=== PATIENT | male | born 1935 | race Caucasian/White ===

== ENCOUNTER → 2017-02-26 | Outpatient (CLI) | payer MEDICARE, BC ==
[~2017-02-26] MED LIST: CALC-131 PO; CHOL1TAB42 PO; CO Q60CA PO; DOXA1 PO; DOXA1TAB34 PO; ERYT.5%O RIGHT EYE; FISH500C PO; VALT1TAB PO; VIAG50TA PO; ZOFR4TAB3 SL; [UNRECOGNIZED DRUG - OTHER] PO
[2017-02-26 14:09] LABS: HEMATOCRIT 39.4 % (39.0-51.0); MEAN CELL VOLUME 90.2 FL (80.0-100.0); MEAN CORPUSCULAR HEMOGLOBIN 31.9 PG (27.0-34.0); MEAN CORPUSCULAR HGB CONC 35.4 % (32.0-36.0); PLATELET COUNT 129 TH/MM3 (150-450); RED BLOOD COUNT 4.37 MIL/MM3 (4.50-5.90); RED CELL DISTRIBUTION WIDTH 13.6 % (11.6-17.2); WHITE BLOOD COUNT 3.8 TH/MM3 (4.0-11.0)
[2017-02-26 14:15] LABS: HEMO FLAGS AUTO DIFF
[2017-02-26 15:32] LABS: BANDS 12 % (0-6); BASOPHILS 1 % (0-2); NEUTROPHIL # MANUAL DIFF 2.5 TH/MM3 (1.8-7.7); PLATELET ESTIMATE SMEAR LOW (NORMAL); PLATELET MORPHOLOGY NORMAL (NORMAL); POLYS (SEG NEUTROPHILS) 55 % (16-70); SCAN/DIFF FINAL DIFF MANUAL; WBC DIFF SAMPLE 100
== END ==
LOC: CLAB 13:50
PROVIDERS: ATTEND Family Medicine
DX: B01.9 Varicella without complication (principal)
CPT/HCPCS: 36415; 85007; 85027; 86787

== ENCOUNTER 2017-02-27 16:17 | Observation (INO) | payer MEDICARE, BC ==
[~2017-02-27] VITALS: Ht 170.2 cm; Wt 75.0 kg
[~2017-02-27 16:17] MED LIST changes: -CALC-131 PO; -CHOL1TAB42 PO; -CO Q60CA PO; -DOXA1TAB34 PO; -FISH500C PO; -VALT1TAB PO; -ZOFR4TAB3 SL; -[UNRECOGNIZED DRUG - OTHER] PO
[2017-02-27] MEDS ORDERED: SODIUM CHLOR 0.9% 1000 ML INJ 1,000 ML IV ONE ×2 (17:15)
[2017-02-27] MEDS ORDERED: ONDANSETRON HCL 4 MG/2 ML VIAL IV ONE (17:15)
[2017-02-27 17:46] VITALS: BP 120/60; PULSE 92; RESP 18; TEMP 97.9; O2SAT 98
[2017-02-27 17:46] LABS: AUTOMATED NEUTROPHIL # 2.9 TH/MM3 (1.8-7.7); BASOPHIL % 0.4 % (0.0-2.0); HEMATOCRIT 35.8 % (39.0-51.0); LYMPH % 15.6 % (9.0-44.0); LYMPHOCYTE # 0.6 TH/MM3 (1.0-4.8); MEAN CELL VOLUME 89.4 FL (80.0-100.0); MEAN CORPUSCULAR HEMOGLOBIN 31.1 PG (27.0-34.0); MEAN CORPUSCULAR HGB CONC 34.7 % (32.0-36.0); MONO % 13.3 % (0.0-8.0); NEUT % 70.7 % (16.0-70.0); RED CELL DISTRIBUTION WIDTH 13.3 % (11.6-17.2); WHITE BLOOD COUNT 4.1 TH/MM3 (4.0-11.0)
[2017-02-27 17:49] LABS: BLOOD, URINE SMALL (NEG); COMMENT (UR) CULT NOT INDICATED; CULTURE IF INDICATED CULT NOT INDICATED; GLUCOSE,URINE NEG (NEG); HYALINE CAST, URINE 1 /lpf (RARE); KETONE, URINE 10 mg/dL (NEG); MUCUS URINE FEW /lpf (OCC); NITRITE,URINE NEG (NEG); PH, URINE 6.5 (5.0-8.5); URINE COLOR YELLOW (YELLW/STRAW)
[2017-02-27 17:50] LABS: HEMO FLAGS AUTO DIFF
--- NOTE | 2017-02-27 17:55 | PD ---
HPI Chief Complaint: Fall Time Seen by Provider: 17:03 Travel History International Travel<30 days: No Contact w/Intl Traveler<30days: No Traveled to known affect area: No History of Present Illness HPI Send 81-year-old man who presents to the emergency department complaining of dizziness lightheadedness nausea and falls. He was recently diagnosed with chickenpox after his developed zoster. Skin sick for a couple days now. He's been taking Valtrex. He started getting dizzy and nauseous 2 days ago. Is put on Zofran by his primary physician. He states he's continued to have nausea, feeling weak, unable to eat or drink, and today got weak and fell. He otherwise has been healthy and strong. He really doesn't have any other significant medical problems. EMS reports patient was hypotensive initially blood pressure 95/56. Improved with IV fluids. History Past Medical History Narrative Medical Hypertension Tetanus Vaccination: < 5 Years Influenza Vaccination: Yes Social History Alcohol Use: No Tobacco Use: No Allergies-Medications (Allergen,Severity, Reaction): Coded Allergies: No Known Allergies (Verified , 11/17/15) Reported Meds & Prescriptions Reported Meds & Active Scripts Active Reported Vitamin D-3 (Cholecalciferol) 2,000 Unit Tab 2,000 Units PO DAILY Fish Oil ([place]-3 Fatty Acids) 500 Mg Cap 500 Mg PO DAILY Co Q 10 (Coenzyme Q10 (Ubidecarenone)) 60 Mg Cap 60 Mg PO DAILY [Eye Vision Guard] 1 Cap PO DAILY Calcium & Magnesium (Calcium-Magnesium) 750-465 Mg Tab 1 Tab PO DAILY Zofran Odt (Ondansetron Odt) 4 Mg Tab 4 Mg SL Q8HR PRN Valtrex (Valacyclovir HCl) 1 Gm Tab 1,000 Mg PO TID Doxazosin (Doxazosin Mesylate) 4 Mg Tab 4 Mg PO HS Review of Systems Except as stated in HPI: all other systems reviewed are Neg Physical Exam Narrative GENERAL: 81-year-old man, somewhat ill-appearing, no acute distress. SKIN: Focused skin assessment warm/dry. Widely disseminated papular and vesicular lesions with scabbing in different stages of development. HEENT: Dry mucous membranes. NECK: Trachea midline. No JVD. CARDIOVASCULAR: Regular rate and rhythm. No murmur appreciated. RESPIRATORY: No accessory muscle use. Clear to auscultation. Breath sounds equal bilaterally. GASTROINTESTINAL: Abdomen soft, non-tender, nondistended. Hepatic and splenic margins not palpable. MUSCULOSKELETAL: No obvious deformities. No edema. NEUROLOGICAL: Awake and alert. No obvious cranial nerve deficits. Motor grossly within normal limits. Normal speech. PSYCHIATRIC: Appropriate mood and affect; insight and judgment normal. Data Data Last Documented VS Vital Signs Date Time Temp Pulse Resp B/P Pulse Ox O2 Delivery O2 Flow Rate FiO2 02/27/17 18:51 86 16 123/62 98 Room Air 02/27/17 17:46 97.9 Orders Complete Blood Count With Diff (02/27/17 17:13) Comprehensive Metabolic Panel (02/27/17 17:13) Act Partial Throm Time (Ptt) (02/27/17 17:13) Prothrombin Time / Inr (Pt) (02/27/17 17:13) Urinalysis - C+S If Indicated (02/27/17 17:13) Iv Access Insert/Monitor (02/27/17 17:13) Electrocardiogram (02/27/17 ) Lactic Acid Sepsis Protocol (02/27/17 17:13) Sodium Chlor 0.9% 1000 Ml Inj (Ns 1000 M (02/27/17 17:15) Sodium Chlor 0.9% 1000 Ml Inj (Ns 1000 M (02/27/17 17:15) Ondansetron Inj (Zofran Inj) (02/27/17 17:15) Isolation (02/27/17 17:55) Labs Laboratory Tests Test 02/27/17 17:30 White Blood Count 4.1 TH/MM3 Red Blood Count 4.00 MIL/MM3 Hemoglobin 12.4 GM/DL Hematocrit 35.8 % Mean Corpuscular Volume 89.4 FL Mean Corpuscular Hemoglobin 31.1 PG Mean Corpuscular Hemoglobin 34.7 % Concent Red Cell Distribution Width 13.3 % Platelet Count 94 TH/MM3 Mean Platelet Volume 9.2 FL Neutrophils (%) (Auto) 70.7 % Lymphocytes (%) (Auto) 15.6 % Monocytes (%) (Auto) 13.3 % Eosinophils (%) (Auto) 0.0 % Basophils (%) (Auto) 0.4 % Neutrophils # (Auto) 2.9 TH/MM3 Lymphocytes # (Auto) 0.6 TH/MM3 Monocytes # (Auto) 0.5 TH/MM3 Eosinophils # (Auto) 0.0 TH/MM3 Basophils # (Auto) 0.0 TH/MM3 CBC Comment AUTO DIFF Differential Comment AUTO DIFF CONFIRMED Prothrombin Time 12.7 SEC Prothromb Time International 1.1 RATIO Ratio Activated Partial 32.8 SEC Thromboplast Time Urine Color YELLOW Urine Turbidity CLEAR Urine pH 6.5 Urine Specific [place] 1.010 Urine Protein TRACE mg/dL Urine Glucose (UA) NEG mg/dL Urine Ketones 10 mg/dL Urine Occult Blood SMALL Urine Nitrite NEG Urine Bilirubin NEG Urine Urobilinogen LESS THAN 2.0 MG/DL Urine Leukocyte Esterase NEG Urine RBC 3 /hpf Urine WBC 1 /hpf Urine Hyaline Casts 1 /lpf Urine Mucus FEW /lpf Microscopic Urinalysis Comment CULT NOT INDICATED Sodium Level 137 MEQ/L Potassium Level 3.8 MEQ/L Chloride Level 104 MEQ/L Carbon Dioxide Level 23.2 MEQ/L Anion Gap 10 MEQ/L Blood Urea Nitrogen 18 MG/DL Creatinine 1.25 MG/DL Estimat Glomerular Filtration 56 ML/MIN Rate Random Glucose 106 MG/DL Lactic Acid Level 1.3 mmol/L Calcium Level 7.3 MG/DL Protein Corrected Calcium 8.1 MG/DL Total Bilirubin 0.9 MG/DL Aspartate Amino Transf 58 U/L (AST/SGOT) Alanine Aminotransferase 50 U/L (ALT/SGPT) Alkaline Phosphatase 68 U/L Total Protein 5.7 GM/DL Albumin 3.1 GM/DL [facility] Medical Decision Making Medical Screen Exam Complete: Yes Emergency Medical Condition: Yes Interpretation(s) LABS: CBC remarkable for mild anemia. CMP unremarkable. Lactate 1.3. Coags unremarkable. UA unremarkable. Differential Diagnosis Dehydration, anemia, sepsis or infection, other Narrative Course Medical decision making INITIAL cause an 81-year-old man, presents to the emergency department with weakness, nausea, decreased by mouth intake, and fall in the setting of chickenpox infection. He looks ill. Appears dehydrated. Had hypotension but improved after IV fluids. We'll check labs, IV fluid rehydration, plan on admission. Diagnosis Primary Impression: Dehydration Additional Impressions: Weakness Chickenpox Admitting Information Admitting Physician Requests: Observation Cody Bahena MD Feb 27, 2017 17:55
[2017-02-27] MEDS ORDERED: CHOL1TAB42 PO (17:56)
[2017-02-27] MEDS ORDERED: ZOFR4TAB3 SL (17:56)
[2017-02-27] MEDS ORDERED: DOXA1TAB34 PO (17:56)
[2017-02-27] MEDS ORDERED: FISH500C PO (17:56)
[2017-02-27] MEDS ORDERED: [UNRECOGNIZED DRUG - OTHER] PO (17:56)
[2017-02-27] MEDS ORDERED: VALT1TAB PO (17:56)
[2017-02-27] MEDS ORDERED: CALC-131 PO (17:56)
[2017-02-27] MEDS ORDERED: CO Q60CA PO (17:56)
[2017-02-27 18:02] LABS: APTT (PATIENT) 32.8 SEC (24.3-30.1); INTERNATIONAL NORMALIZED RATIO 1.1 RATIO; PROTHROMBIN TIME - PATIENT 12.7 SEC (9.8-11.6)
[2017-02-27 18:17] LABS: BICARBONATE 23.2 MEQ/L (21.0-32.0); CALCIUM-PROTEIN CORRECTED 8.1 MG/DL (8.5-10.1); POTASSIUM 3.8 MEQ/L (3.5-5.1); TOTAL BILIRUBIN ADULT 0.9 MG/DL (0.2-1.0)
[2017-02-27 18:30] LABS: PLATELET COUNT 94 TH/MM3 (150-450); SCAN/DIFF AUTO DIFF CONFIRMED
[2017-02-27 18:51] VITALS: BP 123/62; PULSE 86; RESP 16; O2SAT 98
[2017-02-27] MEDS ORDERED: NALOXONE HCL 0.4 MG/ML AMP IV PRN (20:00)
[2017-02-27] MEDS ORDERED: SODIUM CHLORIDE 0.9% FLUSH 10 ML FLUSH IV FLUSH PRN (20:00)
[2017-02-27] MEDS ORDERED: ONDANSETRON HCL 4 MG/2 ML VIAL IV PUSH PRN (20:45)
[2017-02-27] MEDS: SODIUM CHLORIDE 0.9% FLUSH 10 ML FLUSH IV FLUSH SCH (21:00)
[2017-02-27] MEDS ORDERED: ACETAMINOPHEN 500 MG CPLT PO PRN (22:15)
--- NOTE | 2017-02-27 22:18 | HHI.HP ---
[facility] Bethany Garib[facility] MD Admission Diagnosis dehydration, chicken pox Diagnoses: Travel History International Travel<30 Days: No Contact w/Intl Traveler <30 Da: No Traveled to Known Affected Are: No History of Present Illness This is a pleasant 81-year-old gentleman with a past medical history which includes hypertension and BPH. Patient reports he was in his normal state of health until Sunday when he began to have nausea, loose stools, generalized malaise and subjective fevers. Patient's has recently had shingles and patient was diagnosed with chickenpox by his PCP yesterday. Patient does have generalized pustular rash consistent with chickenpox throughout his entire body. Patient's decided to bring him to the emergency department after he had a syncopal episode today where he fell on his right side on the tile bathroom floor. Patient does report loss of consciousness. Patient's was present reports he had lost consciousness for a few minutes which spontaneously returned. Patient and deny head trauma. EVAC was called and patient was found to be hypotensive 95/56. Patient reports he has not been eating and drinking much in the last few days due to his nausea. Patient only had one cup of soup all day. Patient denies shortness of breath chest pain vomiting or constipation. Review of Systems Except as stated in HPI: all other systems reviewed are Neg Past Family Social History Past Medical History Hypertension, BPH Past Surgical History Bilateral inguinal hernia repair, appendectomy, bilateral cataract surgery Reported Medications Vitamin D-3 (Cholecalciferol) 2,000 Unit Tab 2,000 Units PO DAILY Fish Oil ([place]-3 Fatty Acids) 500 Mg Cap 500 Mg PO DAILY Co Q 10 (Coenzyme Q10 (Ubidecarenone)) 60 Mg Cap 60 Mg PO DAILY [Eye Vision Guard] 1 Cap PO DAILY Calcium & Magnesium (Calcium-Magnesium) 750-465 Mg Tab 1 Tab PO DAILY Zofran Odt (Ondansetron Odt) 4 Mg Tab 4 Mg SL Q8HR PRN Valtrex (Valacyclovir HCl) 1 Gm Tab 1,000 Mg PO TID Doxazosin (Doxazosin Mesylate) 4 Mg Tab 4 Mg PO HS Allergies: Coded Allergies: No Known Allergies (Verified , 11/17/15) Active Ordered Medications Current Medications Medications (Trade) Dose Ordered Sig/Lidya Route Start Time Stop Time Status Last Admin (NS Flush) 2 ml UNSCH PRN IV FLUSH 02/27/17 20:00 (NS Flush) 2 ml BID IV FLUSH 02/27/17 21:00 02/27/17 21:00 (Narcan Inj) 0.4 mg UNSCH PRN IV 02/27/17 20:00 (Zofran Inj) 4 mg Q6HR PRN IV PUSH 02/27/17 20:45 Family History Mother in her 90s secondary to pneumonia Father in his 70s of unknown causes Social History Patient was at home with his Reports occasional EtOH use glass of wine approximately once a week Quit smoking in 1972 Denies illicit drug use Physical Exam Vital Signs Vital Signs Date Time Temp Pulse Resp B/P Pulse Ox O2 Delivery O2 Flow Rate FiO2 02/27/17 18:51 86 16 123/62 98 Room Air 02/27/17 17:49 98 Room Air 02/27/17 17:46 97.9 92 18 120/60 98 Physical Exam GENERAL: This is a well-nourished, well-developed patient, appears fatigued. SKIN: Skin tear right elbow/upper arm. Generalized pustular rash throughout body consistent with chickenpox. Skin appears dry with dry mucous membranes HEAD: Atraumatic. Normocephalic. No temporal or scalp tenderness. EYES: Extraocular motions intact. No scleral icterus. No injection or drainage. CARDIOVASCULAR: Regular rate and rhythm without murmurs, gallops, or rubs. RESPIRATORY: Clear to auscultation. Breath sounds equal bilaterally. No wheezes , rales, or rhonchi. GASTROINTESTINAL: Abdomen soft, non-tender, nondistended. No hepato-splenomegaly , or palpable masses. No guarding. MUSCULOSKELETAL: Extremities without clubbing, cyanosis, or edema. No joint tenderness, effusion, or edema noted. No calf tenderness. Negative Homans sign bilaterally. NEUROLOGICAL: Awake and alert. No focal deficits appreciated. Motor and sensory grossly within normal limits. 4 out of 5 muscle strength in all muscle groups. Normal speech. Laboratory Laboratory Tests Test 02/27/17 17:30 White Blood Count 4.1 Red Blood Count 4.00 Hemoglobin 12.4 Hematocrit 35.8 Mean Corpuscular Volume 89.4 Mean Corpuscular Hemoglobin 31.1 Mean Corpuscular Hemoglobin 34.7 Concent Red Cell Distribution Width 13.3 Platelet Count 94 Mean Platelet Volume 9.2 Neutrophils (%) (Auto) 70.7 Lymphocytes (%) (Auto) 15.6 Monocytes (%) (Auto) 13.3 Eosinophils (%) (Auto) 0.0 Basophils (%) (Auto) 0.4 Neutrophils # (Auto) 2.9 Lymphocytes # (Auto) 0.6 Monocytes # (Auto) 0.5 Eosinophils # (Auto) 0.0 Basophils # (Auto) 0.0 CBC Comment AUTO DIFF Differential Comment AUTO DIFF CONFIRMED Prothrombin Time 12.7 Prothromb Time International 1.1 Ratio Activated Partial 32.8 Thromboplast Time Urine Color YELLOW Urine Turbidity CLEAR Urine pH 6.5 Urine Specific [place] 1.010 Urine Protein TRACE Urine Glucose (UA) NEG Urine Ketones 10 Urine Occult Blood SMALL Urine Nitrite NEG Urine Bilirubin NEG Urine Urobilinogen LESS THAN 2.0 Urine Leukocyte Esterase NEG Urine RBC 3 Urine WBC 1 Urine Hyaline Casts 1 Urine Mucus FEW Microscopic Urinalysis Comment CULT NOT INDICATED Sodium Level 137 Potassium Level 3.8 Chloride Level 104 Carbon Dioxide Level 23.2 Anion Gap 10 Blood Urea Nitrogen 18 Creatinine 1.25 Estimat Glomerular Filtration 56 Rate Random Glucose 106 Lactic Acid Level 1.3 Calcium Level 7.3 Protein Corrected Calcium 8.1 Total Bilirubin 0.9 Aspartate Amino Transf 58 (AST/SGOT) Alanine Aminotransferase 50 (ALT/SGPT) Alkaline Phosphatase 68 Total Protein 5.7 Albumin 3.1 Result Diagram: 02/27/17 1730 02/27/17 1730 Assessment and Plan Problem List: (1) Chickenpox ICD Code: B01.9 Status: Acute (2) Syncope ICD Code: R55 Status: Acute (3) Dehydration ICD Code: E86.0 Status: Acute Assessment and Plan This is a pleasant 81-year-old gentleman with a past medical history which includes hypertension and BPH. Patient presents to the emergency department with chickenpox and syncopal episode 1 Chickenpox inpatient 81 years old IV fluids Supportive care Antibiotics as needed Tylenol for pain/fever as needed Syncopal episode likely secondary to dehydration Hypotensive episode also likely secondary to acute hydration IV fluids Check orthostatic hypotension Hypertension chronic Continue home medication with hold parameters DVT prophylaxis with SCDs Discussed with ER provider, nursing patient patient's at bedside and Allyn Pichardo Feb 27, 2017 22:18
[2017-02-28 04:07] VITALS: BP 94/51; PULSE 77; RESP 18; TEMP 98; O2SAT 97
[2017-02-28] MEDS ORDERED: SODIUM CHLOR 0.9% 1000 ML INJ 1,000 ML IV SCH (04:30)
--- NOTE | 2017-02-28 06:50 | EKG ---
Date Performed: 02/27/2017 Time Performed: 18:05:55 PTAGE: 81 years EKG: Sinus rhythm WITH OCCASIONAL ABERRANTLY CONDUCTED PAC MINIMAL ST DEPRESSION BORDERLINE ECG NO PREVIOUS TRACING DOCTOR: Ezio Melvin Interpretating Date/Time 02/28/2017 06:48:17
[2017-02-28 07:42] LABS: HEMATOCRIT 33.1 % (39.0-51.0); MEAN CELL VOLUME 89.5 FL (80.0-100.0); MEAN CORPUSCULAR HEMOGLOBIN 31.3 PG (27.0-34.0); PLATELET COUNT 82 TH/MM3 (150-450); WHITE BLOOD COUNT 3.5 TH/MM3 (4.0-11.0)
[2017-02-28 07:45] LABS: HEMO FLAGS AUTO DIFF
[2017-02-28 08:00] VITALS: BP 114/60; PULSE 77; RESP 18; TEMP 96.2; O2SAT 96
[2017-02-28 08:14] LABS: BICARBONATE 24.7 MEQ/L (21.0-32.0); POTASSIUM 3.8 MEQ/L (3.5-5.1)
--- NOTE | 2017-02-28 08:51 | HHI.PR ---
Subjective Remarks Follow-up for syncope and chickenpox. Patient seen with at bedside. The patient was diagnosed with chickenpox by his PCP on Sunday. He has been having nausea and poor oral intake since then. He states he felt very dehydrated never he came in yesterday, and feels much better shape. The nausea has improved, but still reports poor appetite. He did have an episode of syncope yesterday after he stood up to use the bathroom. The patient does report a history of syncopal episodes in the past which have been evaluated by his PCP, Dr. Garibay, who referred him to cardiology who performed a long-term heart monitor, and syncope workup as outpatient was unyielding per patient and . The patient declines to repeat syncope workup as he has had it done before. He denies any fevers or chills. He denies any further lightheadedness and dizziness when he gets out of bed. He would like to try to eat. He would like to go home to rest and recover if possible. Objective Vitals Vital Signs Date Time Temp Pulse Resp B/P Pulse Ox O2 Delivery O2 Flow Rate FiO2 02/28/17 04:07 98.0 77 18 94/51 97 02/27/17 18:51 86 16 123/62 98 Room Air 02/27/17 17:49 98 Room Air 02/27/17 17:46 97.9 92 18 120/60 98 Result Diagram: 02/28/17 0540 02/28/17 0540 Objective Remarks GENERAL: Well-developed well-nourished. In no acute distress. SKIN: Warm and dry. Generalized maculopapular rash on the trunk, face, and back. HEENT: Normocephalic. Pupils equal and round. Mucous membranes pink and moist. CARDIOVASCULAR: Regular rate and rhythm. No murmur appreciated. RESPIRATORY: No accessory muscle use. Clear to auscultation. Breath sounds equal bilaterally. GASTROINTESTINAL: Abdomen soft, non-tender, nondistended. Bowel sounds x4. MUSCULOSKELETAL: No obvious deformities. No clubbing or cyanosis. No edema. NEUROLOGICAL: Awake and alert. No focal neurological deficits. Moves upper and lower extremities spontaneously. Normal speech. PSYCHIATRIC: Appropriate mood and affect; insight and judgment normal. A/P Problem List: (1) Chickenpox ICD Code: B01.9 Status: Acute (2) Syncope ICD Code: R55 Status: Acute (3) Dehydration ICD Code: E86.0 Status: Acute Assessment and Plan This is a pleasant 81-year-old gentleman with a past medical history which includes hypertension and BPH. Patient presents to the emergency department with chickenpox and syncopal episode 1 Chickenpox in 81 year old patient Contact isolation Supportive care IV fluids Antiemetics as needed Tylenol for pain/fever as needed Wirt diet Syncopal episode likely secondary to dehydration. It also sounds as the patient has a history of vasovagal syncope with extensive negative workup in the past. Hypotensive episode also likely secondary to acute dehydration. IV fluids Check orthostatic hypotension PT eval Hypertension chronic Continue home medication with hold parameters DVT prophylaxis with SCDs Discharge Planning Possible discharge planning to home if patient is able to tolerate oral intake and ambulate with no difficulties. 1500 patient reassessed. He feels much better today. He ate his entire breakfast and lunch. He ambulated with PT, recommended no restrictions. He was found to be mildly orthostatic. BP does appear to be over controlled, which could definitely contribute to syncopal episodes. Recommended decreasing doxazosin from 4 mg to 2 mg. Patient instructed to stay well hydrated with water and Gatorade. He plans to follow up soon with his PCP, Dr. Garibay. He is asking go home. Discharge home today in stable condition. Problem Qualifiers (1) Syncope: Qualified Code: R55 - Vasovagal syncope Govind Amaro Feb 28, 2017 08:51
[2017-02-28] MEDS: SODIUM CHLORIDE 0.9% FLUSH 10 ML FLUSH IV FLUSH SCH (09:00)
[2017-02-28 09:59] LABS: BANDS 7 % (0-6); OVALOCYTES 1+ (NORMAL); PLATELET ESTIMATE SMEAR LOW (NORMAL); PLATELET MORPHOLOGY NORMAL (NORMAL); POLYS (SEG NEUTROPHILS) 51 % (16-70); SCAN/DIFF FINAL DIFF MANUAL; WBC DIFF SAMPLE 100
[2017-02-28 10:00] LABS: ACANTHOCYTES OCC (NORMAL)
[2017-02-28] MEDS: valACYclovir HCL 500 MG TAB PO SCH ×2 (10:11→13:54)
[2017-02-28 12:00] VITALS: BP 104/59; PULSE 80; RESP 18; TEMP 99.4; O2SAT 97
[2017-02-28 14:49] VITALS: BP_SYST 116; BP_SYST 120; BP_SYST 127; BP_DIAS 58; BP_DIAS 60; BP_DIAS 61; O2SAT 98
[2017-02-28] MEDS ORDERED: DOXA1TAB34 PO (14:59)
[2017-02-28] MEDS ORDERED: DOXAZOSIN MESYLATE 4 MG TAB PO SCH (21:00)
== END 2017-02-28 15:33 | disposition home or self-care (01) ==
LOC: NEPC 16:17 → NEDA 19:32 → NEPGCP 22:21
PROVIDERS: ADMIT Hospitalist; ATTEND Hospitalist
DX: B01.9 Varicella without complication (principal); E86.0 Dehydration; R55 Syncope and collapse; I95.9 Hypotension, unspecified; I10 Essential (primary) hypertension; N40.0 Benign prostatic hyperplasia without lower urinary tract symptoms; Z87.891 Personal history of nicotine dependence
CPT/HCPCS: 80048; 80053; 81001; 83605; 85007; 85025; 85027; 85610; 85730; 93005; 96365; 96375; 97161; 99285; G0378; G8987; G8988; J2405; J7030

== ENCOUNTER → 2017-04-18 | Outpatient (CLI) | payer MEDICARE, BC ==
[~2017-04-18] MED LIST changes: +CALC-131 PO; +CHOL1TAB42 PO; +CO Q60CA PO; -DOXA1 PO; +DOXA1TAB34 PO; -ERYT.5%O RIGHT EYE; +FISH500C PO; +VALT1TAB PO; -VIAG50TA PO; +ZOFR4TAB3 SL; +[UNRECOGNIZED DRUG - OTHER] PO
== END ==
LOC: CLAB 15:15
PROVIDERS: ATTEND Family Medicine
DX: R19.7 Diarrhea, unspecified (principal)
CPT/HCPCS: 87328; 87329; 87506

== ENCOUNTER 2018-05-16 13:52 | Observation (INO) ==
[2018-05-16 15:59] LABS: Baso % (Auto) 0.3 % (0.0-2.0); Eos % (Auto) 0.2 % (0.0-4.0); Hematocrit 36.9 % (39.0-51.0); Hemoglobin 13.2 gm/dL (13.0-17.0); Lymph # (Auto) 0.6 th/mm3 (1.0-4.8); Lymph % (Auto) 10.5 % (9.0-44.0); Mean Corpuscular HGB Conc 35.9 % (32.0-36.0); Mean Corpuscular Hemoglobin 32.8 pg (27.0-34.0); Mean Corpuscular Volume 91.4 fL (80.0-100.0); Mono # (Auto) 0.8 th/mm3 (0.0-0.9); Mono % (Auto) 14.7 % (0.0-8.0); Neut # (Auto) 4.2 th/mm3 (1.8-7.7); Neut % (Auto) 74.3 % (16.0-70.0); Platelet Count 145 th/mm3 (150-450); Red Blood Count 4.03 mil/mm3 (4.50-5.90); Red Cell Distribution Width 13.4 % (11.6-17.2); White Blood Count 5.7 th/mm3 (4.0-11.0)
--- NOTE | 2018-05-16 16:01 | CT ---
EXAM DATE: 05/16/2018 3:51 PM EDT AGE/SEX: 83 years / Male INDICATIONS: Syncope episode. CLINICAL DATA: This is the patient's initial encounter. Patient reports that signs and symptoms have been present for 1 day and indicates a pain score of 0/10. MEDICAL/SURGICAL HISTORY: None. None. RADIATION DOSE: 35.69 CTDI (mGy) [place] [facility] [place]. . TECHNIQUE: CT of the head without contrast. Using automated exposure control and adjustment of the mA and/or kV according to patient size, radiation dose was kept as low as reasonably achievable to ob tain optimal diagnostic quality images. DICOM format image data is available electronically for revi ew and comparison. FINDINGS: Cerebrum: The ventricles are normal for age. No evidence of midline shift, mass lesion, hemorrhage or acute infarction. No extraaxial fluid collections are seen. Posterior Fossa: The cerebellum and brainstem are intact. The 4th ventricle is midline. The cerebe llopontine angle is unremarkable. Extracranial: The visualized portion of the orbits is intact. There is mild mucosal thickening in th e left maxillary sinus. Skull: The calvaria is intact. No evidence of skull fracture. CONCLUSION: No acute intracranial findings . Electronically signed by: Juan Lee MD 05/16/2018 4:00 PM EDT
[2018-05-16 16:08] LABS: INR 1.1 Ratio; Prothrombin Time 11.4 sec (9.8-11.6)
[2018-05-16 16:11] LABS: Anion Gap 10 meq/L (5-15); Blood Urea Nitrogen 21 mg/dL (7-18); Calcium 9.1 mg/dL (8.5-10.1); Chloride 104 meq/L (98-107); Glomerular Filtration Rate 54 mL/min (>89); Glucose,Random 108 mg/dL (74-106); Potassium 3.9 meq/L (3.5-5.1); Sodium 140 meq/L (136-145)
--- NOTE | 2018-05-16 16:18 | XR ---
EXAM DATE: 05/16/2018 4:09 PM EDT AGE/SEX: 83 years / Male INDICATIONS: Syncope. CLINICAL DATA: This is the patient's initial encounter. Patient reports that signs and symptoms have been present for 2 days and indicates a pain score of 0/10. MEDICAL/SURGICAL HISTORY: None. None. COMPARISON: [facility], CHEST 1V SINGLE AP, 03/26/2018. . FINDINGS: Lungs are clear. Heart size is normal. Pulmonary vasculature is normal. Osseous structures appear velma ssly intact. CONCLUSION: Negative examination. Electronically signed by: Elisa Arnold MD 05/16/2018 4:17 PM EDT
[2018-05-16] MEDS ORDERED: Sod Chloride 0.9% Inj 1,000 ML IV.SIG ONE (16:33)
--- NOTE | 2018-05-16 16:45 | ED ---
HPI General Chief complaint: Syncope Stated complaint: Multiple Complaints Time Seen by Provider: 05/16/18 15:06 Source: patient, family and old records reviewed Limitations: no limitations History of Present Illness HPI narrative: The patient is an 83-year-old male that came to the emergency department for evaluation after he had a syncopal episode. He stated that Sunday evening he had headache and then on Sunday morning he felt some chills and then on Sunday night when he was in the bathroom he had a syncopal episode. He had similar syncopal episode in the March of this year when he was seen here in the emergency department and was evaluated. At that time the patient believed that it was a reaction to chickenpox vaccination that he had the day before. He had a head CT at that time and a laceration repair but left AMA. The patient did not really follow-up as an outpatient for further evaluation of his syncopal episode. He stated that he was nauseous morning he had an episode of emesis and has been very thirsty with increased urination. Denies shortness of breath or chest pain. He does have motion sickness but it was not associated with this event. complaint: yesterday Onset (ago): unknown Associated symptoms: confusion and syncope Related Data Home Medications Medication Instructions Recorded Confirmed doxazosin 4 mg PO DAILY 03/26/18 05/16/18 Allergies Allergy/AdvReac Type Severity Reaction Status Date / Time No Known Allergies Allergy Unverified 03/26/18 15:00 Review of Systems ROS: all other systems reviewed are negative [facility] Medical History Medical History HTN (hypertension) (Acute) BPH (benign prostatic hyperplasia) (Acute) Social History Social History Substance History: No History of Abuse Second Hand Smoke Exposure: No Smoking Status: Never smoker How Often Do You Have a Drink Containing Alcohol: Monthly or less Recent Travel in [facility] within the Last 8 Weeks: No Recent Out of Country Travel within the Last 8 Weeks: No Immunization History Tetanus Immunization: Unsure Exam Narrative Exam Narrative: GENERAL: Alert and oriented in no distress. Alert SKIN: Focused skin assessment warm/dry. HEAD: Atraumatic. Normocephalic. EYES: Pupils equal and round. No scleral icterus. No injection or drainage. ENT: No nasal bleeding or discharge. Mucous membranes pink and moist. NECK: Trachea midline. No JVD. CARDIOVASCULAR: Regular rate and rhythm. No murmur appreciated. RESPIRATORY: No accessory muscle use. Clear to auscultation. Breath sounds equal bilaterally. GASTROINTESTINAL: Abdomen soft, non-tender, nondistended. Hepatic and splenic margins not palpable. MUSCULOSKELETAL: No obvious deformities. No clubbing. No cyanosis. No edema. NEUROLOGICAL: Awake and alert. No obvious cranial nerve deficits. Motor grossly within normal limits. Normal speech. PSYCHIATRIC: Appropriate mood and affect; insight and judgment normal. Course Hospital Course: Patient with mild prerenal azotemia. He was hydrated in the emergency department. No orthostatic signs. Head CT was unremarkable. Reevaluation(s) Reevaluation #1: Patient is resting comfortably no distress. Time: 17:30 Initial Documented Vital Signs Temperature 98.3 F 05/16/18 14:37 Pulse Rate 95 H 05/16/18 14:37 Respiratory Rate 16 05/16/18 14:37 Blood Pressure 140/74 05/16/18 14:37 Pulse Oximetry 100 05/16/18 14:37 Last Documented Vital Signs Temperature 98.3 F 05/16/18 14:37 Pulse Rate 91 H 05/16/18 15:32 Respiratory Rate 21 05/16/18 15:32 Blood Pressure 149/80 H 05/16/18 15:32 Pulse Oximetry 99 05/16/18 15:32 NIH Stroke Scale NIHSS Time Completed NIHSS Time Completed: 15:10 NIH Stroke Scale Level of Consciousness: 0-Alert Orientation Questions: 0-Answers both correct Responds to Commands: 0-Both tasks correct Gaze Eye Movement: 0-Horizontal movement WNL Visual Buckner: 0-No visual field defect Facial Movement: 0-Normal Motor Functions Arm LEFT: 0-No drift Motor Functions Arm RIGHT: 0-No drift Motor Functions Leg RIGHT: 0-No drift Limb Ataxia: 0-No ataxia Sensory Loss: 0-No sensory loss Best Language: 0-Normal Articulation: 0-Normal Extinction or Inattention Sensory: 0-Absent Total: 0 Medical Decision Making MDM Narrative Medical decision making narrative: Patient with syncopal episode second several months possibly orthostatic possibly associated with mild dehydration however since she had not had a work on the previous time feel they will be necessary to convince him to stay for admission and further evaluation of his syncopal episodes. His initial workup is unremarkable with the exception of elevated BUN. No signs of infectious process. Head CT was unremarkable. Medical Screen Exam Complete: Yes Emergency Medical Condition: Yes Lab Data Lab results reviewed: Yes I reviewed the patient's lab results. Result diagrams: 05/16/18 15:35 05/16/18 15:35 Lab Results 05/16/18 05/16/18 05/16/18 Range/Units 15:35 15:35 15:35 WBC 5.7 (4.0-11.0) th/mm3 RBC 4.03 L (4.50-5.90) mil/mm3 Hgb 13.2 (13.0-17.0) gm/dL Hct 36.9 L (39.0-51.0) % MCV 91.4 (80.0-100.0) fL MCH 32.8 (27.0-34.0) pg MCHC 35.9 (32.0-36.0) % RDW 13.4 (11.6-17.2) % Plt Count 145 L (150-450) th/mm3 MPV 8.0 (7.0-11.0) fL Neut % (Auto) 74.3 H (16.0-70.0) % Lymph % (Auto) 10.5 (9.0-44.0) % Moody % (Auto) 14.7 H (0.0-8.0) % Eos % (Auto) 0.2 (0.0-4.0) % Baso % (Auto) 0.3 (0.0-2.0) % Neut # (Auto) 4.2 (1.8-7.7) th/mm3 Lymph # (Auto) 0.6 L (1.0-4.8) th/mm3 [place] # (Auto) 0.8 (0.0-0.9) th/mm3 Eos # (Auto) 0.0 (0.0-0.4) th/mm3 Baso # (Auto) 0.0 (0.0-0.2) th/mm3 WBC Differential . Differential Comment Auto diff final PT 11.4 (9.8-11.6) sec INR 1.1 Ratio APTT 30.0 (24.3-30.1) sec Sodium 140 (136-145) meq/L Potassium 3.9 (3.5-5.1) meq/L Chloride 104 (98-107) meq/L Carbon Dioxide 26.0 (21.0-32.0) meq/L Anion Gap 10 (5-15) meq/L BUN 21 H (7-18) mg/dL Creatinine 1.28 (0.60-1.30) mg/dL Estimated GFR 54 L (>89) mL/min Random Glucose 108 H (74-106) mg/dL Calcium 9.1 (8.5-10.1) mg/dL Troponin I Less than 0.02 L (0.02-0.05) ng/mL Imaging Data Radiologist's impression: Chest X-Ray 05/16/18 15:20 CONCLUSION: Negative examination. Head CT 05/16/18 15:20 CONCLUSION: No acute intracranial findings . ECG Data Attestation: I personally reviewed and interpreted this ECG as follows: Interpretation: Normal sinus rhythm 82 bpm AK interval 186 QTC [address]-T wave abnormalities possible right atrial normal Discharge Plan Discharge Disposition Patient Disposition: 30 Still Patient Discharge Condition Condition: Good Discharge Details Diagnosis: Syncope and collapse, Prerenal azotemia Physicians Team ED Provider: Jerel Chamorro Primary Care Provider: Bethany Garibay Attending Provider: Hiram Stallings Other Providers: Amy Fofana Status ED Status: Admitted Observation Patient
[2018-05-16] MEDS ORDERED: Acetaminophen 325 MG Tablet PO PRN (17:54)
--- NOTE | 2018-05-16 18:14 | P.HPIM ---
History of Present Illness Primary Care Physician: Bethany Garibay MD History of Present Illness: 83 y/o male with a history of htn and BPH presented to the ED with complaints of passing out. Patient states he began having headaches on Sunday and they continued until today when he was walking out of the bathroom he passed out. He denies any dizziness, chest pain, palpitations, sob, fever or chills. He states on Sunday he had chills but no associated fevers. Review of Systems All other systems reviewed negative except as stated in HPI PMFSH - History History Provided By: Patient, Family Member - Medical History Medical History: Medical History (Last Reviewed 05/16/18 @ 18:05 by GENE Ann) HTN (hypertension) BPH (benign prostatic hyperplasia) - Surgical History Surgical History: Surgical History (Last Reviewed 05/16/18 @ 18:05 by GENE Ann) History of appendectomy - Family History Family History: Family History (Last Reviewed 05/16/18 @ 18:06 by GENE Ann) Other Family history normal - Social History I have reviewed the patient's Social History: Yes - Tobacco History Second Hand Smoke Exposure: No Smoking Status: Never smoker - Alcohol History How Often Do You Have a Drink Containing Alcohol: Monthly or less - Substance Use History Substance History: No History of Abuse - Travel History Recent Travel in the [place] Within the Last 8 Weeks: No Recent Travel Out of the Country Within the Last 8 Weeks: No - Immunization History Tetanus Immunization: Unsure Medications and Allergies Active Medications: Active Medications Acetaminophen (Tylenol) 650 mg PO Q4H PRN PRN Reason: Temp > 100.4 Sodium Chloride (Ns Inj) 1,000 mls @ 100 mls/hr IV.CONT .Q10H NATASHA Ondansetron HCl (Zofran Inj) 4 mg IV.PUSH Q6H PRN PRN Reason: NAUSEA OR VOMITING Sennosides (Senokot) 17.2 mg PO Q12H PRN PRN Reason: Moderate Constipation Allergies Allergy/AdvReac Type Severity Reaction Status Date / Time No Known Allergies Allergy Unverified 03/26/18 15:00 Home Medications Medication Instructions Recorded Confirmed Type doxazosin 4 mg PO DAILY 03/26/18 05/16/18 History Exam Vital signs: Vital Signs 05/16/18 14:37 05/16/18 15:32 Temperature 98.3 F Pulse Rate 95 H 91 H Respiratory Rate 16 21 Blood Pressure 140/74 149/80 H Pulse Oximetry 100 99 Intake & Output 05/15/18 05/16/18 05/16/18 18:59 06:59 18:59 Intake Total 1000 / 1000 Balance 1000 / 1000 Weight 70.307 kg Intake: IV 1000 / 1000 NS Inj 1,000 ML @ Wide Open IV. 1000 / 1000 SIG BOLUS ONE Rx#:[id number] Narrative: GENERAL: This is a well-nourished, well-developed patient, in no apparent distress. CARDIOVASCULAR: Regular rate and rhythm without murmurs, gallops, or rubs. RESPIRATORY: Clear to auscultation. Breath sounds equal bilaterally. No wheezes , rales, or rhonchi. GASTROINTESTINAL: Abdomen soft, non-tender, nondistended. Normal active bowel sounds MUSCULOSKELETAL: Extremities without clubbing, cyanosis, or edema. NEURO: Alert & Oriented x4 to person, place, time, situation. Moves all ext x4 Results - Labs CBC & Chem 7: 05/16/18 15:35 05/16/18 15:35 Labs: Short CBC 05/16/18 Range/Units 15:35 WBC 5.7 (4.0-11.0) th/mm3 Hgb 13.2 (13.0-17.0) gm/dL Hct 36.9 L (39.0-51.0) % Plt Count 145 L (150-450) th/mm3 BMP 05/16/18 15:35 Sodium 140 Potassium 3.9 Chloride 104 Carbon Dioxide 26.0 BUN 21 H Creatinine 1.28 Calcium 9.1 Cardiac Enzymes 05/16/18 Range/Units 15:35 Troponin I Less than 0.02 L (0.02-0.05) ng/mL - Imaging Impressions Chest X-Ray 05/16/18 15:20 CONCLUSION: Negative examination. Head CT 05/16/18 15:20 CONCLUSION: No acute intracranial findings . Caprini VTE Risk Assessment Caprini VTE Risk Assessment: No/Low Risk (score <= 1) Caprini Risk Assessment Model: Point Value = 1 Point Value = 2 Point Value = 3 Point Value = 5 Age 41-60 Minor surgery BMI > 25 kg/m2 Swollen legs Varicose veins or History of unexplained or recurrent spontaneous Oral contraceptives or hormone replacement Sepsis (< 1 month) Serious lung disease, including pneumonia (< 1 month) Abnormal pulmonary function Acute myocardial infarction Congestive heart failure (< 1 month) History of inflammatory bowel disease Medical patient at bed rest Age 61-74 Arthroscopic surgery Major open surgery (> 45 min) Laparoscopic surgery (> 45 min) Malignancy Confined to bed (> 72 hours) Immobilizing plaster cast Central venous access Age >= 75 History of VTE Family history of VTE Factor V Leiden Prothrombin [id number] Lupus anticoagulant Anticardiolipin antibodies Elevated serum homocysteine Heparin-induced thrombocytopenia Other congenital or acquired thrombophilia Stroke (< 1 month) Elective arthroplasty Hip, pelvis, or leg fracture Acute spinal cord injury (< 1 month) Prophylaxis Regimen: Total Risk Factor Score Risk Level Prophylaxis Regimen 0-1 Low Early ambulation 2 Moderate Order ONE of the following: *Sequential Compression Device (SCD) *Heparin 5000 units SQ BID 3-4 Higher Order ONE of the following medications: *Heparin 5000 units SQ TID *Enoxaparin/Lovenox 40 mg SQ daily (WT < 150 kg, CrCl > 30 mL/min) *Enoxaparin/Lovenox 30 mg SQ daily (WT < 150 kg, CrCl > 10-29 mL/min) *Enoxaparin/Lovenox 30 mg SQ BID (WT < 150 kg, CrCl > 30 mL/min) AND/OR *Sequential Compression Device (SCD) 5 or more Highest Order ONE of the following medications: *Heparin 5000 units SQ TID (Preferred with Epidurals) *Enoxaparin/Lovenox 40 mg SQ daily (WT < 150 kg, CrCl > 30 mL/min) *Enoxaparin/Lovenox 30 mg SQ daily (WT < 150 kg, CrCl > 10-29 mL/min) *Enoxaparin/Lovenox 30 mg SQ BID (WT < 150 kg, CrCl > 30 mL/min) AND *Sequential Compression Device (SCD) Assessment and Plan - Plan 83 y/o male with a history of htn and BPH presented to the ED with complaints of passing out. Syncope, possible dehydration, BUN [address] unremarkable -US carotids, 2d echo, EEG ordered -Orthostatic BPs ordered -Monitor tele -IVF for hydration -Consult neurology for evaluation -PT Eval Hypertension -Resume home medications -Monitor blood pressures DVT prophylaxis: SCDs Discussed Condition With: Patient and RN
--- NOTE | 2018-05-16 18:58 | US ---
EXAM DATE: 05/16/2018 6:45 PM EDT AGE/SEX: 83 years / Male INDICATIONS: Syncope. CLINICAL DATA: This is the patient's initial encounter. Patient reports that signs and symptoms have been present for 1 day and indicates a pain score of 0/10. MEDICAL/SURGICAL HISTORY: Hypertension. Benign prostatic hyperplasia. None. COMPARISON: No prior exams available for comparison. VELOCITY PARAMETERS: ICA/CCA Ratio: Right 1.6 , Left 1.2 ICA: Right 110.3 cm/sec, Left 96.7 cm/sec CCA: Right 66.9 cm/sec, Left 80.6 cm/sec ECA: Right 72.4 cm/sec, Left 75.7 cm/sec Vertebral: Right 52.6 cm/sec antegrade, Left 60.3 cm/sec antegrade FINDINGS: Right Carotid: Mild arteriosclerotic plaque is visualized.The waveforms are within normal limits. Left Carotid: Mild arteriosclerotic plaque is visualized. The waveforms are within normal limits. Other: None. CONCLUSION: 1. Right Internal Carotid Artery: No hemodynamically significant stenosis. 2. Left Internal Carotid Artery: No hemodynamically significant stenosis. Electronically signed by: Lew Willis MD 05/16/2018 6:57 PM EDT
[2018-05-16] MEDS: Sod Chloride 0.9% Inj 1,000 ML IV.CONT SCH (19:21)
[2018-05-17] MEDS: Sod Chloride 0.9% Inj 1,000 ML IV.CONT SCH ×2 (06:16→15:41)
[2018-05-17 07:25] LABS: Baso % (Auto) 0.4 % (0.0-2.0); Eos # (Auto) 0.1 th/mm3 (0.0-0.4); Eos % (Auto) 1.7 % (0.0-4.0); Hematocrit 32.8 % (39.0-51.0); Hemoglobin 11.5 gm/dL (13.0-17.0); Lymph # (Auto) 0.8 th/mm3 (1.0-4.8); Lymph % (Auto) 16.1 % (9.0-44.0); Mean Corpuscular Hemoglobin 31.9 pg (27.0-34.0); Mean Corpuscular Volume 91.3 fL (80.0-100.0); Mean Platelet Volume 8.1 fL (7.0-11.0); Mono # (Auto) 0.9 th/mm3 (0.0-0.9); Mono % (Auto) 17.9 % (0.0-8.0); Neut # (Auto) 3.2 th/mm3 (1.8-7.7); Neut % (Auto) 63.9 % (16.0-70.0); Platelet Count 131 th/mm3 (150-450); Red Blood Count 3.59 mil/mm3 (4.50-5.90); Red Cell Distribution Width 13.2 % (11.6-17.2)
[2018-05-17 08:06] LABS: Carbon Dioxide 24.5 meq/L (21.0-32.0)
[2018-05-17] MEDS ORDERED: Doxazosin 4 MG Tablet PO SCH (09:00)
--- NOTE | 2018-05-17 10:47 | MB ---
cc: Amy Fofana MD DATE: 05/17/2018 REASON FOR CONSULTATION: Syncope. HISTORY OF PRESENT ILLNESS: This is a pleasant 83-year-old man with a history of BPH, takes only doxazosin at nighttime. Comes in because he passed out Sunday into early morning. He finished urinating and he was washing his hands and then found himself on the floor for an unknown length of time. Woke up without any weakness or confusion. No incontinence, no tongue biting. Apparently, he states over the course of his lifetime, starting from his teen years, he has had 8 syncopes. The last one may have been about 3-6 weeks ago. He was here. He received some sutures over the left forehead. He states it was a day or 2 after he received the initial shingles vaccine. The only time he had a prodrome prior to passing out was once in a restaurant where it was hot and noisy. He was sitting down. He tried to get up to get out of there and then he passed out, but otherwise he does not really get any type of symptomatology as far as lightheadedness, shortness of breath, chest pain, weakness butterflies in the stomach, so forth. He had a headache on Sunday. Otherwise, he states he is in fairly good health. He has no history of epilepsy and no other medical history except for possible hypertension, but it looks like more so BPH. PAST SURGICAL HISTORY: Appendectomy. FAMILY HISTORY: Noncontributory. SOCIAL HISTORY: He is and does not smoke. Drinks rarely. HOME MEDICINES: Only doxazosin, he states 4 mg. ALLERGIES TO MEDICATIONS: DENIES. PHYSICAL EXAMINATION: VITAL SIGNS: His temperature is 97.8, pulse 86, respiratory rate 12, blood pressure 144/74. On admission, it was 118/63. No orthostatics yet. NECK: Supple. I do not appreciate any bruits. HEART: Regular. LUNGS: Appear clear. NEUROLOGIC: He is awake, he is alert. He is oriented. He is fluent. His pupils are reactive. Visual butcher full. Face symmetrical. Tongue midline. Motor cardenas, he does not exhibit any significant drift or leg lag. Cerebellar is normal. DTRs are 1+. Sensory normal. Gait: He is sitting in a chair and ambulating around the room. DIAGNOSTIC DATA: A CT of the head was unremarkable. His carotid ultrasound was normal bilaterally. He has pending echocardiogram as well as orthostatics. LABORATORY DATA: His most recent labs: CBC, hemoglobin is 11.5, his platelets 131,000. Chemistries: BUN 20, GFR 54. IMPRESSION AND PLAN: Syncope, possibly vasovagal. Certainly a dysrhythmia to be ruled out. It does not sound like stroke or transient ischemic attack or seizure. He will undergo an EEG. Carotids already have been reported as normal. An echocardiogram will be done. Currently, I believe he has a Holter monitor as well as telemetry pack on, and he will have orthostatic blood pressures and maintain hydration as well. Hold his doxazosin. If his workup is negative, I would highly recommend a loop recorder. He states he has had a prolonged monitor in the past. I am not sure if that is available for review, but since these events do not happen frequently, a loop recorder would be more high yield as that can remain implanted for a number of years. Continue to monitor and further recommendations will be made. Orders already have been ordered. MD PATRIA Galvan/tee , 09:08 AM , 09:17 AM
--- NOTE | 2018-05-17 11:43 | P.PNIM ---
Subjective Interval history: Patient does not have any current complaints. Physical Exam Vital signs: Vital Signs 05/16/18 14:37 05/16/18 15:32 05/16/18 18:01 Temperature 98.3 F Pulse Rate 95 H 91 H 89 Respiratory Rate 16 21 18 Blood Pressure 140/74 149/80 H 147/79 H Pulse Oximetry 100 99 98 05/16/18 19:00 05/16/18 20:00 05/16/18 23:23 Temperature 98.0 F 98 F 98.3 F Pulse Rate 88 81 81 Respiratory Rate 20 18 18 Blood Pressure 166/74 H 145/70 H 118/63 Pulse Oximetry 98 91 L 96 05/17/18 00:03 05/17/18 03:07 05/17/18 08:00 Temperature 98.5 F 97.8 F Pulse Rate 80 76 86 Respiratory Rate 18 12 Blood Pressure 132/71 144/74 H Pulse Oximetry 94 L 99 Intake & Output 05/16/18 05/17/18 05/17/18 18:59 06:59 18:59 Intake Total 1000 / 1000 1000 / 1000 Output Total 600 / 600 Balance 1000 / 1000 400 / 400 Weight 70.307 kg 70.307 kg Intake: IV 1000 / 1000 1000 / 1000 NS Inj 1,000 ML @ 100 mls/hr IV 1000 / 1000 .CONT .Q10H NATASHA Rx#:[id number] NS Inj 1,000 ML @ Wide Open IV. 1000 / 1000 SIG BOLUS ONE Rx#:[id number] Output: Urine 600 / 600 Other: Weight On Admission 70.307 kg Narrative: General patient in no acute distress HEENT extraocular movements are intact, clear oropharyngeal mucosa, scar noted above the left eyebrow well-healed Cardiovascular S1-S2 audible, RRR, no murmurs rubs or gallops Respiratory clear to auscultation bilaterally Abdomen soft, nontender, nondistended, normal bowel sounds Extremities no edema 2+ distal pulses in bilateral upper and lower extremities Neuro cranial nerves II through XII intact Results - Labs CBC & Chem 7: 05/17/18 06:31 05/17/18 06:31 Laboratory Results - last 24 hr 05/16/18 05/16/18 05/16/18 15:35 15:35 15:35 WBC 5.7 RBC 4.03 L Hgb 13.2 Hct 36.9 L MCV 91.4 MCH 32.8 MCHC 35.9 RDW 13.4 Plt Count 145 L MPV 8.0 Neut % (Auto) 74.3 H Lymph % (Auto) 10.5 [place] % (Auto) 14.7 H Eos % (Auto) 0.2 Baso % (Auto) 0.3 Neut # (Auto) 4.2 Lymph # (Auto) 0.6 L [place] # (Auto) 0.8 Eos # (Auto) 0.0 Baso # (Auto) 0.0 WBC Differential . Differential Comment Auto diff final PT 11.4 INR 1.1 APTT 30.0 Sodium 140 Potassium 3.9 Chloride 104 Carbon Dioxide 26.0 Anion Gap 10 BUN 21 H Creatinine 1.28 Estimated GFR 54 L Random Glucose 108 H Calcium 9.1 Troponin I Less than 0.02 L 05/17/18 05/17/18 06:31 06:31 WBC 5.0 RBC 3.59 L Hgb 11.5 L Hct 32.8 L MCV 91.3 MCH 31.9 MCHC 35.0 RDW 13.2 Plt Count 131 L MPV 8.1 Neut % (Auto) 63.9 Lymph % (Auto) 16.1 [place] % (Auto) 17.9 H Eos % (Auto) 1.7 Baso % (Auto) 0.4 Neut # (Auto) 3.2 Lymph # (Auto) 0.8 L [place] # (Auto) 0.9 Eos # (Auto) 0.1 Baso # (Auto) 0.0 WBC Differential . Differential Comment Auto diff final PT INR APTT Sodium 141 Potassium 4.0 Chloride 111 H Carbon Dioxide 24.5 Anion Gap 6 BUN 20 H Creatinine 1.27 Estimated GFR 54 L Random Glucose 91 Calcium 8.0 L D Troponin I - Imaging Impressions Carotid Doppler Study 05/16/18 00:00 CONCLUSION: 1. Right Internal Carotid Artery: No hemodynamically significant stenosis. 2. Left Internal Carotid Artery: No hemodynamically significant stenosis. Chest X-Ray 05/16/18 15:20 CONCLUSION: Negative examination. Head CT 05/16/18 15:20 CONCLUSION: No acute intracranial findings . Assessment and Plan - Plan This patient is an 83-year-old male with a diagnosis of hypertension and BPH. As per the patient he has been having syncopal episodes since his teens. He states that he has had nearly 7 total syncopal episodes in his life. He presented to our emergency department after a syncopal episode while at his home. He denies any palpitations or chest pain prior to the episode. No history of seizures no seizure-like activity. 1. Syncope likely vasovagal 2. Hypertension 3. BPH As stated above the patient presented after a syncopal episode while at his home. He states that a few years ago he was waiting in line to pay a bill and felt nauseous and then suffered a syncopal episode. Yesterday after preparing coffee in the morning he says that he began to feel nauseous and attempted to make it to his bedroom but ended up falling down. There was no chest pain no palpitations no seizure-like activity noted. He states that he has been eating and hydrating himself well. Orthostatic vitals were done in the emergency department which were negative. Ultrasound of the carotids were ordered which did not show any significant stenosis CT scan of the head is negative no significant events on telemetry were found. Neurology has been consulted and I will follow up with the recommendations. Continue doxazosin for hypertension and BPH.
--- NOTE | 2018-05-17 12:56 | ECHRPT ---
Indication: Atrial Fib and Flutter CONCLUSIONS Normal left ventricular size. Wall thickness is normal. The left ventricular systolic function is normal with an estimated ejection fraction in the range of 55-60%. No regional wall motion abnormalities are present. Aorta appears to be normal in size. Aorta is not well visualized. In the parasternal long axis, ca nnot rule out linear opacity consistent with dissection. Clinical correlation recommended. Case discussed wi Dr. Arnold, recommend computed tomographic angiography of the chest to rule out descending aortic dissection. Trace mitral valve regurgitation. Moderate aortic valve regurgitation. There is trace tricuspid valve regurgitation. The estimated pulmonary arterial pressure is 35mmHg. There is a small pericardial effusion present. BP: / HR: Rhythm: MEASUREMENTS (Male / Female) Normal Values Technical Quality:Fair 2D ECHO LV Diastolic Diameter PLAX 4.3 cm 4.2 - 5.9 / 3.9 - 5.3 cm LV Systolic Diameter PLAX 3.3 cm IVS Diastolic Thickness 1.0 cm 0.6 - 1.0 / 0.6 - 0.9 cm LVPW Diastolic Thickness 1.0 cm 0.6 - 1.0 / 0.6 - 0.9 cm LV Relative Wall Thickness 0.4 RV Internal Dim ED PLAX 3.1 cm LVOT Diameter 2.2 cm Aortic Root Diameter 3.4 cm LA Systolic Diameter LX 3.8 cm 3.0 - 4.0 / 2.7 - 3.8 cm M-MODE AV Cusp Separation MM 2.2 cm DOPPLER AV Peak Velocity 158.0 cm/s AV Peak Gradient 10.0 mmHg AI Peak Velocity 406.0 cm/s AI Peak Gradient 65.9 mmHg AI Pressure Half Time 426.5 ms LVOT Peak Velocity 145.0 cm/s LVOT Peak Gradient 8.4 mmHg AV Area Cont Eq pk 3.5 cm Mitral E Point Velocity 101.0 cm/s Mitral A Point Velocity 104.0 cm/s Mitral E to A Ratio 1.0 LV E' Lateral Velocity 10.9 cm/s Mitral E to LV E' Lateral Ratio 9.3 LV E' Septal Velocity 7.7 cm/s Mitral E to LV E' Septal Ratio 13.1 TR Peak Velocity 251.7 cm/s TR Peak Gradient 25.3 mmHg Right Atrial Pressure 10.0 mmHg Pulmonary Artery Systolic Pressu 35.3 mmHg Right Ventricular Systolic Press 35.3 mmHg PV Peak Velocity 110.0 cm/s PV Peak Gradient 4.8 mmHg FINDINGS LEFT VENTRICLE Normal left ventricular size. Wall thickness is normal. The left ventricular systolic function is normal with an estimated ejection fraction in the range of 55-60%. No regional wall motion abnormalities are present. RIGHT VENTRICLE Normal right ventricular size and systolic function. LEFT ATRIUM The left atrial size is normal. RIGHT ATRIUM The right atrial size is normal. ATRIAL SEPTUM Normal atrial septal thickness without atrial level shunting by limited color doppler interrogation. AORTA Aorta appears to be normal in size. Aorta is not well visualized. In the parasternal long axis, ca nnot rule out linear opacity consistent with dissection. MITRAL VALVE Structurally normal mitral valve. Trace mitral valve regurgitation. AORTIC VALVE Trileaflet aortic valve. Moderate aortic valve regurgitation. TRICUSPID VALVE There is trace tricuspid valve regurgitation. The estimated pulmonary arterial pressure is 35mmHg. PULMONARY VALVE No pulmonary valve regurgitation or stenosis. VESSELS The inferior vena cava is normal in size. PERICARDIUM There is a small pericardial effusion present. Cody Moore MD, FACC (Electronically Signed) Final Date:17 May 2018 12:55
--- NOTE | 2018-05-17 13:59 | ECG ---
Date Performed: 05/16/2018 Time Performed: 15:25:57 PTAGE: 83 years EKG: Sinus rhythm NORMAL ECG Since the PREVIOUS TRACING , no significant change noted PREVIOUS TRACIN03/26/2018 15.19 DOCTOR: Mandy Mosley Interpretating Date/Time 05/17/2018 13:57:33
--- NOTE | 2018-05-17 17:33 | P.AMA ---
AMA Note - AMA Note AMA Statement: Patient Jeferson Blum has decided to leave the hospital against medical advice. This patient has the capacity to refuse care and understands the risks of leaving, including permanent disability and/or , and has had an opportunity to ask questions about his/her condition. The patient has been informed that he/she may return for care at any time, and follow up has been arranged/advised. - AMA Note Discharge Disposition: Left Against Medical Advice Patient Condition on Discharge: Good
--- NOTE | 2018-05-17 18:22 | MG ---
cc: Amy Fofana MD ELECTROENCEPHALOGRAM NUMBER: [id number] NURSE PRACTITIONER: GENE Dotson INDICATION: This is an 83-year-old man in G80 with photic stimulation. REASON FOR STUDY: Syncope. CT was unremarkable. DESCRIPTION OF RECORD: The patient has a background rhythm of 9-1/2 Hz, 20-30 microvolts. A lot of eye movement artifact, but overall this is a symmetrical background. Diffuse, it is well organized. ELECTROCARDIOGRAM: There are P-waves. It seems to look like a sinus rhythm. No epileptiform features. There is a driving response with photic stimulation that is mild. IMPRESSION: Normal appearing electroencephalogram. No evidence of any epileptiform features. Clinical correlation. Amy Fofana MD / , 04:41 PM , 04:46 PM
--- NOTE | 2018-05-19 12:50 | HM ---
Date Performed: 05/16/2018 Time Performed: 19:58:00 HOOKUP DATE: 05/16/18 07:58:00 PM [facility] ANALYSIS START TIME: 05/16/2018 8:03:00 PM ANALYSIS END TIME: 05/17/2018 5:44:30 PM PATIENT AGE: 83 PATIENT HEIGHT PATIENT WEIGHT DRUG LIST PATIENT DIAGNOSIS: syncope TEST NARRATIVE: The patient's average heart rate was 86 BPM. Heart rates greater than 120 B PM were noted 1% of the time. Heart rates less than 50 BPM were noted < 1% of the time. No pause s exceeding 2.0 seconds were noted. 14 ventricular ectopics, which represented < 1% of the total beat count, were noted. The highest ventricular ectopic frequency occurred from 08:00 PM to 09:00 PM [facility]. During this time 4 VE(s) occurred. Ventricular ectopics were observed as 14 isolated beat(s) only. No couplets or runs were noted. 79 supraventricular ectopics, which represented < 1% of th e total beat count, were noted. The highest supraventricular ectopic frequency occurred from 03:00 A M to 04:00 AM Fri. During this time 25 SVE(s) occurred. No episodes of ST depression (defined as -1.0 mm or more) were noted in channel 1. No episodes of ST depression (defined as -1.0 mm or more) were noted in channel 2. No episodes of ST depression (defined as -1.0 mm or more) were noted in ch jimmy 3. TEST INTERPRETATION: Holter monitor demonstrates Sinus rhythm with a maximum heart rate of 124 bpm at 1029. There was a rare PAC and PVC. No other significant arr hythmias were seen. No diary accompanied Holter tracing. Signed by : Anthony Zavala
== END 2018-05-17 17:52 | disposition left against medical advice (07) ==
LOC: NEPC 13:52 → NEDA 13:52 → NEPGCP 21:09
PROVIDERS: ADMIT Hospitalist; ATTEND Hospitalist